=== PATIENT | female | born 1995 | race Caucasian/White ===

== ENCOUNTER 2018-07-06 18:55 | Outpatient (CLI) | payer MEDICAID ==
[2018-07-06 20:17] LABS: ADD MAN DIFF? NO
[2018-07-06 20:19] LABS: WHITE BLOOD COUNT 10.5 10^3/ul (4.8-10.8)
[2018-07-06 20:19] LABS: BASOPHIL # 0.1 10^3/ul (0.0-0.1); BASOPHILS % 0.5 % (0.0-2.0); EOSINOPHILS # 0.1 10^3/ul (0.0-0.5); EOSINOPHILS % 0.5 % (0.0-7.0); HEMATOCRIT 35.5 % (37.0-47.0); LYMPHOCYTES # 2.2 10^3/ul (0.8-2.9); LYMPHOCYTES % 21.2 % (15.0-51.0); MEAN CORPUSCULAR HEMOGLOBIN 30.1 pg (29.0-33.0); MEAN CORPUSCULAR HGB CONC 33.8 g/dl (32.0-37.0); MEAN PLATELET VOLUME 11.5 fl (7.4-10.4); MONOCYTE # 0.7 10^3/ul (0.3-0.9); MONOCYTES % 6.5 % (0.0-11.0); NEUTROPHIL # 7.4 10^3/ul (1.6-7.5); NEUTROPHILS % 69.9 % (39.0-77.0); PLATELET COUNT 161 10^3/UL (140-415); RED BLOOD COUNT 3.99 10^6/ul (4.20-5.40); RED CELL DISTRIBUTION WIDTH 14.2 % (11.5-14.5)
[2018-07-06 20:36] LABS: ALANINE AMINOTRANSFERASE 18 IU/L (13-69); ALBUMIN/GLOBULIN RATIO 0.88; ALKALINE PHOSPHATASE 105 IU/L (42-121); ANION GAP 11 (8-16); ASPARTATE AMINO TRANSFERASE 15 IU/L (15-46); BILIRUBIN,INDIRECT 0.2 mg/dl (0-1.1); BILIRUBIN,TOTAL 0.2 mg/dl (0.2-1.3); BLOOD UREA NITROGEN 11 mg/dl (7-20); CALCIUM 8.9 mg/dl (8.4-10.2); CARBON DIOXIDE 22 mmol/L (21-31); CHLORIDE 109 mmol/L (97-110); CREATININE 0.59 mg/dl (0.44-1.00); GLUCOSE 80 mg/dl (70-220); POTASSIUM 4.2 mmol/L (3.5-5.1); SODIUM 138 mmol/L (135-144); TOTAL PROTEIN 6.4 g/dl (6.1-8.1); URIC ACID 5.6 mg/dl (3.1-7.9)
[2018-07-06 20:39] LABS: PROTIME 12.2 Sec (11.9-14.9)
[2018-07-06 20:40] LABS: PARTIAL THROMBOPLASTIN TIME 27.3 Sec (25.0-35.0)
[2018-07-06 20:42] LABS: ADD UMIC YES; UR ASCORBIC ACID NEGATIVE (NEGATIVE); UR BACTERIA FEW /HPF (NONE SEEN); UR BILIRUBIN (Dip) NEGATIVE (NEGATIVE); UR BLOOD (Dip) 1+ mg/dL (NEGATIVE); UR CLARITY CLOUDY (CLEAR); UR COLOR YELLOW (YELLOW); UR GLUCOSE (Dip) NEGATIVE (NEGATIVE); UR KETONES (Dip) NEGATIVE (NEGATIVE); UR LEUKOCYTE ESTERASE (Dip) 2+ Leu/ul (NEGATIVE); UR NITRITE (Dip) NEGATIVE (NEGATIVE); UR RBC 2 /HPF (0-5); UR SPECIFIC GRAVITY (Dip) 1.016 (1.003-1.030); UR SQUAMOUS EPITHELIAL CELL MANY /HPF (FEW); UR TOTAL PROTEIN (Dip) 2+ mg/dl (NEGATIVE); UR UROBILINOGEN (Dip) NEGATIVE (NEGATIVE); UR WBC 9 /HPF (0-5)
== END 2018-07-06 22:09 | disposition home or self-care (01) ==
LOC: OBT 18:55 → L-D 18:58 → OBT 22:09
DX: O13.3 Gestational [pregnancy-induced] hypertension without significant proteinuria, third trimester (principal); Z3A.35 35 weeks gestation of pregnancy
CPT/HCPCS: 36415; 76815; 76818; 80053; 81001; 84560; 85025; 85610; 85730

== ENCOUNTER 2018-07-09 10:39 | Inpatient (IN) | payer MEDICAID ==
[2018-07-09 11:12] LABS: COLLECTION PERIOD 24 hrs
[2018-07-09 11:20] LABS: ADD MAN DIFF? NO
[2018-07-09 11:22] LABS: BASOPHIL # 0.1 10^3/ul (0.0-0.1); BASOPHILS % 0.5 % (0.0-2.0); EOSINOPHILS # 0.1 10^3/ul (0.0-0.5); EOSINOPHILS % 0.6 % (0.0-7.0); HEMATOCRIT 37.6 % (37.0-47.0); HEMOGLOBIN 12.7 g/dl (12.0-16.0); LYMPHOCYTES # 2.5 10^3/ul (0.8-2.9); LYMPHOCYTES % 18.7 % (15.0-51.0); MEAN CORPUSCULAR HEMOGLOBIN 30.3 pg (29.0-33.0); MEAN CORPUSCULAR HGB CONC 33.8 g/dl (32.0-37.0); MEAN CORPUSCULAR VOLUME 89.7 fl (82.0-101.0); MEAN PLATELET VOLUME 11.1 fl (7.4-10.4); MONOCYTE # 0.9 10^3/ul (0.3-0.9); NEUTROPHIL # 9.4 10^3/ul (1.6-7.5); NEUTROPHILS % 71.3 % (39.0-77.0); PLATELET COUNT 153 10^3/UL (140-415); RED BLOOD COUNT 4.19 10^6/ul (4.20-5.40); RED CELL DISTRIBUTION WIDTH 14.1 % (11.5-14.5)
[2018-07-09 11:22] LABS: WHITE BLOOD COUNT 13.2 10^3/ul (4.8-10.8)
[2018-07-09] MEDS ORDERED: MISOPROSTOL 200 MCG TAB PR ×2 (11:30→19:00)
[2018-07-09] MEDS ORDERED: CARBOPROST 250 MCG INJ IM ×2 (11:30→19:00)
[2018-07-09] MEDS ORDERED: CEFAZOLIN 3 GM in DEXTROSE 5% 100 ML IV (11:30)
[2018-07-09] MEDS ORDERED: CA GLUCONATE (GM) 10% 10ML INJ IV (11:30)
[2018-07-09] MEDS ORDERED: METHYLERGONOVINE 0.2 MG INJ IM ×2 (11:30→19:00)
[2018-07-09] MEDS ORDERED: OXYTOCIN 30 UNITS/LR 500 ML IV ×3 (11:30→19:00)
[2018-07-09 11:34] LABS: ADD UMIC YES; UR AMORPHOUS CRYSTAL FEW /HPF (NONE SEEN); UR ASCORBIC ACID NEGATIVE (NEGATIVE); UR BILIRUBIN (Dip) NEGATIVE (NEGATIVE); UR BLOOD (Dip) 1+ mg/dL (NEGATIVE); UR CLARITY CLOUDY (CLEAR); UR COLOR AMBER (YELLOW); UR GLUCOSE (Dip) NEGATIVE (NEGATIVE); UR KETONES (Dip) NEGATIVE (NEGATIVE); UR LEUKOCYTE ESTERASE (Dip) 2+ Leu/ul (NEGATIVE); UR MUCUS FEW /HPF (NONE SEEN); UR NITRITE (Dip) NEGATIVE (NEGATIVE); UR RBC 4 /HPF (0-5); UR SQUAMOUS EPITHELIAL CELL MANY /HPF (FEW); UR TOTAL PROTEIN (Dip) 3+ mg/dl (NEGATIVE); UR UROBILINOGEN (Dip) NEGATIVE (NEGATIVE); UR WBC 35 /HPF (0-5)
[2018-07-09] MEDS: LACTATED RINGER'S 1,000 ML IV (11:35)
[2018-07-09] MEDS: MAGNESIUM SULFATE 4 GM/100 ML 100 ML IV (11:37)
[2018-07-09 11:42] LABS: ALANINE AMINOTRANSFERASE 20 IU/L (13-69); ALBUMIN/GLOBULIN RATIO 0.96; ALKALINE PHOSPHATASE 106 IU/L (42-121); ANION GAP 9 (8-16); ASPARTATE AMINO TRANSFERASE 24 IU/L (15-46); BILIRUBIN,INDIRECT 0.2 mg/dl (0-1.1); BILIRUBIN,TOTAL 0.2 mg/dl (0.2-1.3); BLOOD UREA NITROGEN 8 mg/dl (7-20); CALCIUM 8.6 mg/dl (8.4-10.2); CARBON DIOXIDE 24 mmol/L (21-31); CHLORIDE 107 mmol/L (97-110); CREATININE 0.61 mg/dl (0.44-1.00); GLUCOSE 97 mg/dl (70-220); POTASSIUM 4.2 mmol/L (3.5-5.1); SODIUM 136 mmol/L (135-144); TOTAL PROTEIN 6.1 g/dl (6.1-8.1); URIC ACID 4.6 mg/dl (3.1-7.9)
[2018-07-09] MEDS: LABETALOL HCL 20MG INJ IV (11:43)
[2018-07-09 11:45] LABS: PROTIME 12.2 Sec (11.9-14.9)
[2018-07-09 11:46] LABS: PARTIAL THROMBOPLASTIN TIME 27.1 Sec (25.0-35.0)
[2018-07-09 11:49] LABS: COLLECTION PERIOD 24 hrs; CREATININE CLEARANCE 178.7 mls/min (84.0-162.0); CREATININE,URINE RANDOM 60.37 mg/dl (20-320); SCRET 0.61 mg/dl (0.44-1.00); VOLUME 2600 ml/24hrs
[2018-07-09 11:57] LABS: VOLUME 2600 mls
[2018-07-09] MEDS: MAGNESIUM SULFATE 20 GM/500 ML 500 ML IV ×2 (12:06→22:58)
[2018-07-09 14:40] LABS: HEPATITIS B SURFACE ANTIGEN NEGATIVE (NEGATIVE)
[2018-07-09 15:28] LABS: RAPID PLASMA REAGIN NONREACTIVE (NR)
[2018-07-09] MEDS ORDERED: METOCLOPRAMIDE 10 MG INJ (16:39)
[2018-07-09] MEDS ORDERED: morphine SULFATE/PF (10 MG/10 ML) INJ (16:39)
[2018-07-09] MEDS ORDERED: ONDANSETRON 4 MG INJ (16:39)
[2018-07-09] MEDS ORDERED: BUPIVACAINE 0.75%/DEXT (SPINAL) 2 ML INJ (16:40)
[2018-07-09] MEDS ORDERED: LIDOCAINE 2% (SDV) 5 ML INJ (16:57)
[2018-07-09] MEDS ORDERED: KETOROLAC 30 MG INJ (17:43)
[2018-07-09] MEDS ORDERED: morphine (1 MG/ML) 10ML SYRINGE IV ×3 (18:30)
[2018-07-09] MEDS ORDERED: DIPHENHYDRAMINE 50 MG INJ IV (18:30)
[2018-07-09] MEDS ORDERED: NALOXONE (0.4 MG/ML) INJ IV (18:30)
[2018-07-09] MEDS ORDERED: morphine 2 MG INJ IV ×3 (18:30)
[2018-07-09] MEDS ORDERED: ONDANSETRON 4 MG INJ IV ×2 (18:30)
[2018-07-09] MEDS ORDERED: DEXTROSE 5%-LR 1,000 ML IV (18:35)
[2018-07-09] MEDS ORDERED: METHYLERGONOVINE 0.2 MG TAB PO (19:00)
[2018-07-09 19:20] LABS: MAGNESIUM 4.6 mg/dl (1.7-2.5)
[2018-07-09] MEDS: SENNA/DOCUSATE NA (8.6MG/50MG) TAB PO (21:00)
[2018-07-09] MEDS: HYDROCODONE/APAP (5/325) TAB PO (22:00)
[2018-07-09] MEDS: IBUPROFEN 800 MG TAB PO (22:00)
[2018-07-09] MEDS: OXYTOCIN 30 UNITS/LR 500 ML IV (23:21)
[2018-07-09] MEDS: CEFAZOLIN 2 GM/50 ML (PMX) 50 ML IVPB (23:46)
[2018-07-10 01:05] LABS: MAGNESIUM 4.9 mg/dl (1.7-2.5)
[2018-07-10] MEDS: LACTATED RINGER'S 1,000 ML IV ×2 (03:48→13:48)
[2018-07-10] MEDS: IBUPROFEN 800 MG TAB PO ×3 (05:40→20:16)
[2018-07-10] MEDS: HYDROCODONE/APAP (5/325) TAB PO ×2 (05:40→14:00)
[2018-07-10 06:19] LABS: ADD MAN DIFF? NO
[2018-07-10 06:24] LABS: BASOPHILS % 0.3 % (0.0-2.0); EOSINOPHILS # 0.1 10^3/ul (0.0-0.5); EOSINOPHILS % 0.6 % (0.0-7.0); HEMATOCRIT 34.7 % (37.0-47.0); HEMOGLOBIN 11.6 g/dl (12.0-16.0); LYMPHOCYTES # 2.3 10^3/ul (0.8-2.9); LYMPHOCYTES % 18.2 % (15.0-51.0); MEAN CORPUSCULAR HEMOGLOBIN 29.8 pg (29.0-33.0); MEAN CORPUSCULAR HGB CONC 33.4 g/dl (32.0-37.0); MEAN CORPUSCULAR VOLUME 89.2 fl (82.0-101.0); MEAN PLATELET VOLUME 10.9 fl (7.4-10.4); MONOCYTE # 0.8 10^3/ul (0.3-0.9); MONOCYTES % 6.1 % (0.0-11.0); NEUTROPHIL # 9.2 10^3/ul (1.6-7.5); NEUTROPHILS % 73.8 % (39.0-77.0); PLATELET COUNT 144 10^3/UL (140-415); RED BLOOD COUNT 3.89 10^6/ul (4.20-5.40); RED CELL DISTRIBUTION WIDTH 14.6 % (11.5-14.5)
[2018-07-10 06:24] LABS: WHITE BLOOD COUNT 12.4 10^3/ul (4.8-10.8)
[2018-07-10] MEDS: CEFAZOLIN 2 GM/50 ML (PMX) 50 ML IVPB (06:43)
[2018-07-10 07:20] LABS: MAGNESIUM 5.3 mg/dl (1.7-2.5)
[2018-07-10] MEDS ORDERED: PRENATAL VITAMIN PO (09:00)
[2018-07-10] MEDS ORDERED: FERROUS SULFATE (EC) 325 MG TAB PO (09:00)
[2018-07-10] MEDS: LANOLIN 7 GM TUBE TOP (09:12)
[2018-07-10] MEDS: MAGNESIUM SULFATE 20 GM/500 ML 500 ML IV (09:12)
[2018-07-10] MEDS: SENNA/DOCUSATE NA (8.6MG/50MG) TAB PO ×2 (09:12→20:16)
[2018-07-10 13:22] LABS: MAGNESIUM 5.2 mg/dl (1.7-2.5)
[2018-07-10] MEDS: KETOROLAC 30 MG INJ IV (13:26)
[2018-07-11] MEDS: HYDROCODONE/APAP (5/325) TAB PO ×4 (01:49→17:49)
[2018-07-11] MEDS: LACTATED RINGER'S 1,000 ML IV ×3 (03:08→19:28)
[2018-07-11] MEDS: IBUPROFEN 800 MG TAB PO ×3 (06:03→21:44)
[2018-07-11] MEDS: SENNA/DOCUSATE NA (8.6MG/50MG) TAB PO ×2 (09:32→21:43)
[2018-07-11] MEDS: MAGNESIUM HYDROXIDE 30ML CUP PO (13:18)
[2018-07-11] MEDS: LABETALOL HCL 20MG INJ IV (18:46)
[2018-07-11] MEDS ORDERED: MAGNESIUM SULFATE 2 GM/50 ML 50 ML IVPB (19:00)
[2018-07-11] MEDS: MAGNESIUM SULFATE 4 GM/100 ML 100 ML IVPB (19:05)
[2018-07-11] MEDS: MAGNESIUM SULFATE 20 GM/500 ML 500 ML IV (19:28)
[2018-07-11] MEDS: LABETALOL 200 MG TAB PO ×2 (19:59→21:43)
[2018-07-11] MEDS ORDERED: LABETALOL 100 MG TAB NGT (21:00)
[2018-07-12] MEDS: MAGNESIUM SULFATE 20 GM/500 ML 500 ML IV (05:21)
[2018-07-12] MEDS: IBUPROFEN 800 MG TAB PO ×3 (05:21→21:50)
[2018-07-12 07:12] LABS: MAGNESIUM 4.8 mg/dl (1.7-2.5)
[2018-07-12] MEDS: LACTATED RINGER'S 1,000 ML IV (07:28)
[2018-07-12] MEDS: MEASLES,MUMPS,RUBELLA VACCINE INJ SC* (09:00)
[2018-07-12] MEDS: DIPHTH/TET/ACEL PERTUSS (ADULT) 0.5 ML VIAL IM* (09:00)
[2018-07-12] MEDS: SENNA/DOCUSATE NA (8.6MG/50MG) TAB PO ×2 (09:04→21:50)
[2018-07-12] MEDS: LABETALOL 200 MG TAB PO ×3 (09:05→21:50)
[2018-07-12 12:49] LABS: MAGNESIUM 4.9 mg/dl (1.7-2.5)
[2018-07-12 14:15] LABS: ADD MAN DIFF? NO
[2018-07-12 14:16] LABS: WHITE BLOOD COUNT 10.5 10^3/ul (4.8-10.8)
[2018-07-12 14:16] LABS: BASOPHILS % 0.3 % (0.0-2.0); EOSINOPHILS # 0.1 10^3/ul (0.0-0.5); EOSINOPHILS % 1.2 % (0.0-7.0); HEMATOCRIT 36.7 % (37.0-47.0); HEMOGLOBIN 12.2 g/dl (12.0-16.0); LYMPHOCYTES # 2.1 10^3/ul (0.8-2.9); LYMPHOCYTES % 20.4 % (15.0-51.0); MEAN CORPUSCULAR HEMOGLOBIN 30.1 pg (29.0-33.0); MEAN CORPUSCULAR HGB CONC 33.2 g/dl (32.0-37.0); MEAN CORPUSCULAR VOLUME 90.6 fl (82.0-101.0); MEAN PLATELET VOLUME 10.5 fl (7.4-10.4); MONOCYTE # 0.6 10^3/ul (0.3-0.9); MONOCYTES % 5.5 % (0.0-11.0); NEUTROPHIL # 7.5 10^3/ul (1.6-7.5); NEUTROPHILS % 71.6 % (39.0-77.0); PLATELET COUNT 206 10^3/UL (140-415); RED BLOOD COUNT 4.05 10^6/ul (4.20-5.40); RED CELL DISTRIBUTION WIDTH 14.5 % (11.5-14.5)
[2018-07-12] MEDS: NIFEdipine (XL) 30 MG TAB PO ×2 (14:20→21:50)
[2018-07-12 14:37] LABS: ALANINE AMINOTRANSFERASE 22 IU/L (13-69); ALBUMIN 3.2 g/dl (3.3-4.9); ALBUMIN/GLOBULIN RATIO 0.86; ALKALINE PHOSPHATASE 98 IU/L (42-121); ANION GAP 13 (8-16); ASPARTATE AMINO TRANSFERASE 23 IU/L (15-46); BILIRUBIN,INDIRECT 0.3 mg/dl (0-1.1); BILIRUBIN,TOTAL 0.3 mg/dl (0.2-1.3); BLOOD UREA NITROGEN 12 mg/dl (7-20); CALCIUM 8.3 mg/dl (8.4-10.2); CARBON DIOXIDE 26 mmol/L (21-31); CHLORIDE 104 mmol/L (97-110); CREATININE 0.57 mg/dl (0.44-1.00); GLUCOSE 98 mg/dl (70-220); POTASSIUM 4.6 mmol/L (3.5-5.1); SODIUM 138 mmol/L (135-144); TOTAL PROTEIN 6.9 g/dl (6.1-8.1)
[2018-07-12 14:38] LABS: CHOLESTEROL 283 mg/dl (100-200)
[2018-07-12 14:38] LABS: CHOL/HDL RATIO 4.1 RATIO; HDL CHOLESTEROL 68 mg/dl (33-83); LDL CHOLESTEROL,CALCULATED 153 mg/dl; TRIGLYCERIDES 312 mg/dl (0-149)
[2018-07-12 14:55] LABS: FREE THYROXINE INDEX (Calc) 3.31 ug/ml (0.65-3.89); T3 UPTAKE 20.2 % (23.5-40.5); T4 (THYROXINE) 16.4 ug/dl (5.5-11.0)
[2018-07-12] MEDS: HYDROCODONE/APAP (5/325) TAB PO (15:49)
[2018-07-13] MEDS: IBUPROFEN 800 MG TAB PO ×2 (05:33→14:01)
[2018-07-13] MEDS: LEVOFLOXACIN 500 MG TAB PO (05:33)
[2018-07-13] MEDS: SENNA/DOCUSATE NA (8.6MG/50MG) TAB PO (08:38)
[2018-07-13] MEDS: NIFEdipine (XL) 30 MG TAB PO (08:38)
[2018-07-13] MEDS: LABETALOL 200 MG TAB PO (08:39)
[2018-07-13] MEDS: HYDROCODONE/APAP (5/325) TAB PO ×2 (08:40→12:33)
== END 2018-07-13 16:25 | disposition home or self-care (01) | DRG 765 ==
LOC: OBT 10:39 → L-D 10:40 → OBT 10:58 → L-D 10:58 → PP1 21:05
PROC: 10D00Z1 Extraction of Products of Conception, Low, Open Approach (ICD-10-PCS; principal; 2018-07-09 17:30)
DX: O14.13 Severe pre-eclampsia, third trimester (principal); O23.43 Unspecified infection of urinary tract in pregnancy, third trimester; O23.593 Infection of other part of genital tract in pregnancy, third trimester; Z68.42 Body mass index [BMI] 45.0-49.9, adult; Z3A.36 36 weeks gestation of pregnancy; Z37.0 Single live birth; O10.913 Unspecified pre-existing hypertension complicating pregnancy, third trimester; O99.213 Obesity complicating pregnancy, third trimester; E66.01 Morbid (severe) obesity due to excess calories
CPT/HCPCS: 76815; 76818; 80053; 80061; 81001; 82575; 83735; 84156; 84436; 84443; 84479; 84560; 85025; 85610; 85730; 86592; 86850; 86900; 86901; 87086; 87340; 90715; 99464